=== PATIENT | female | born 1990 | race Hispanic/Latino ===

== ENCOUNTER 2018-06-22 03:01 | Emergency (ER) | payer SELFPAY ==
[2018-06-22] MEDS ORDERED: Sodium Chloride 0.9% 1,000 ML IV STA (03:30)
[2018-06-22] MEDS ORDERED: Morphine 4 MG/ML VIAL IVP STA (03:40)
[2018-06-22] MEDS ORDERED: Morphine 4 MG/ML VIAL ONE (03:55)
--- NOTE | 2018-06-22 04:00 | ED PDOC ---
HPI: Female Pain Time Seen by Provider: 06/22/18 03:14 Chief Complaint (Nursing): Female Genitourinary Chief Complaint (Provider): Female Genitourinary History Per: Patient History/Exam Limitations: no limitations Additional Complaint(s): Verna Lewis is a 27 year old female with no past medical history, who pr esents to the emergency department complaining of continuos vaginal bleeding that was triggered by vaginal intercourse. She states she has had no previous episodes and no known bleeding disorder or gynecological disorder. Patient states she was having intercourse with new male partner and had no rings or objects placed inside vagina. She states that once she felt the blood coming out, she stopped having sex. Patient does report to feeling dizzy and weak. PMD: [facility] Past Medical History Reviewed: Historical Data, Nursing Documentation, Vital Signs Vital Signs: Last Vital Signs Temp 98.3 F 06/22/18 03:08 Pulse 159 H 06/22/18 03:08 Resp 16 06/22/18 03:08 BP 126/94 H 06/22/18 03:08 Pulse Ox 99 06/22/18 03:08 - Medical History PMH: No Chronic Diseases - Surgical History Surgical History: No Surg Hx - Family History Family History: States: Unknown Family Hx - Home Medications Home Medications: Ambulatory Orders Medication Instructions Recorded Docusate Sodium [Colace] 100 mg PO BID #60 capsule 06/22/18 RX: Ferrous Sulfate 325 mg PO BID #60 tablet 06/22/18 oxyCODONE/Acetaminophen [Percocet 1 ea PO Q6 #12 tab 06/22/18 5/325 mg Tab] - Allergies Allergies/Adverse Reactions: Allergies Allergy/AdvReac Type Severity Reaction Status Date / Time No Known Allergies Allergy Verified 06/22/18 03:09 Review of Systems ROS Statement: Except As Marked, All Systems Reviewed And Found Negative Genitourinary Female: Positive for: Vaginal Bleeding Neurological: Positive for: Weakness, Dizziness Physical Exam - Reviewed Nursing Documentation Reviewed: Yes Vital Signs Reviewed: Yes - Physical Exam Appears: Positive for: Non-toxic, No Acute Distress Head Exam: Positive for: ATRAUMATIC, NORMOCEPHALIC Skin: Positive for: Normal Color, Warm, Dry Eye Exam: Positive for: Other (pink conjunctiva) ENT: Positive for: Other (dry lips) Pelvic Exam: Positive for: Active Bleeding (bright red blood from vagina), Other (speculative exam: bright red blood pouring from vagina, unable to visualize vaginal thompson or cervix; at this point STOPPED PELVIC EXAM) Back: Positive for: Normal Inspection. Negative for: L CVA Tenderness, R CVA Tenderness, Vertebral Tenderness Extremity: Positive for: Normal ROM. Negative for: Pedal Edema, Deformity Comments: Patient comes in with several towels soaked in blood. - Laboratory Results Result Diagrams: 06/22/18 08:30 06/22/18 03:52 - ECG O2 Sat by Pulse Oximetry: 99 (RA) Pulse Ox Interpretation: Normal - Critical Care Total Time (In Min): 60 Comments: Control of vaginal bleeding, resuscitation, procedural sedation. Medical Decision Making Medical Decision Making: Time: 0342 A/P: Heavy vaginal bleeding without location identified. Consultation with Dr. Mireille Benavides, who was on her way down immediately. --Labs including CBC, BMP and type and screen. Patient on monitor and TXA ordered. --Following Dr. Benavides's exam, she located the source and will attempt to suture the wound in the ED. Patient will be given 4 mg of morphine and 2 mg of Ativan for procedure. --If procedure is unable to be performed in ED, then patient will go to the OR. --Type and screen --BMP --Beta-HCG, quantitative --CBC with differential --PTT --PT --Ativan 2 mg IVP --Morphine 4 mg IVP --Sodium chloride 1,000 ml --Zofran inj 4 mg IVP Time: 0550 --Moncell's solution was unable to suture due to limitations of angle. Moncell's solution was used along with manual pressure for good control of bleeding. --Will repeat H&H at 8am. --If bleeding continues, patient will be instructed to follow up with outpatient gynecology. Time: 0755 --Patient will be signed out to Dr. Valdez. --Patient will be discharged home if H&H is stable. --Repeat H&H at 8 am. If stable and no return of bleeding, patient will be discharged home . --Patient given referral to Dr. Londono outpatient clinic. --Followup with personal ticket sales agent. --Giving prescription of Percocet for pain. Discussed precaution for Percocet. --Advised to return if pain and bleeding returns. -- Scribe Attestation: Documented by Axel Navas, acting as a scribe for Mireille Ernandez MD. Provider Scribe Attestation: All medical record entries made by the Scribe were at my direction and personally dictated by me. I have reviewed the chart and agree that the record accurately reflects my personal performance of the history, physical exam, medical decision making, and the department course for this patient. I have also personally directed, reviewed, and agree with the discharge instructions and d isposition. Disposition - Clinical Impression Clinical Impression: Traumatic vaginal laceration, Genito-pelvic pain related to vaginal penetration - Disposition Referrals: Mireille Benavides MD [Staff Provider] - Disposition Time: 07:00 Condition: IMPROVED Additional Instructions: Take Motrin for pain. Take Percocet only for severe pain. Follow up with your ticket sales agent or the Dr. Benavides (the ticket sales agent you saw today) in 3 to 5 days. Do not insert any object (including but not limited to: penis, tampon, Nuva ring, etc) into the vagina. If you develop extreme pain, bleeding, difficulty urinating, or other new symptoms, please return to the emergency department. Dr. Mireille Benavides [address] [place] [address] Prescriptions: Docusate Sodium [Colace] 100 mg PO BID #60 capsule RX: Ferrous Sulfate 325 mg PO BID #60 tablet oxyCODONE/Acetaminophen [Percocet 5/325 mg Tab] 1 ea PO Q6 #12 tab Instructions: Moderate Sedation in Adults (DC) Forms: [employer] (Vietnamese), [facility] ED School/Work Excuse Print Language: ISRAELI ED Procedural Sedation - Pre Anesthesia Assessment Chief Complaint: Female Genitourinary Past Medical History: Medications Reviewed, Allergies Reviewed, Record Review Previous Surgies: Reviewed (ear pinning and dental extraction) Family History/Social History: Reviewed (father with heart disease and stent placement) - Physical Exam/Review of Systems Vital Signs Reviewed: Yes Cardiovascular: Regular Rate and Rhythm, Normal S1, S2. denies: Murmurs Respiratory/Chest: Clear to Auscultation, Good Air Exchange, Respiratory Distress, Accessory Muscle Use Neurological: GCS=15, CN II-XII Intact, Speech Normal Abdomen: Normal Bowel Sounds. denies: Tenderness, Distention, Peritoneal Signs Mental Status: Alert and Oriented X 3 - Pre-Procedure Airway Assessment History of difficult intubation or surgical airway (i.e trach):: No (no previous intubation) Inability to extend neck:: No Mouth opening less than two finger breadth:: No Diagnosis of sleep apnea:: No Less than three finger breadth to hyoid bone:: No ASA Criteria: 1 - Healthy, normal. 2 - Mild systemic disease (No functional limitations, mildline obesity, DM withot complications, Hypertention). 3 - Severe systemic disease (Some functional limitation, stable angina, morbid obesity, controlled COPD/Asthma/CHF). 4 - Sever systemic disease constant threat to life (Unstable angina, active symptoms of COPD/Asthma, CHF/ Hypertension. 5 - Moribund ASA Clarification: ASA I Mallampati (airway): Class II - Intra-Procedure (Medications) Medications Given: Ketamine HCl (Ketalar) 70 mg IV ONCE ONE Stop: 06/22/18 05:04 Discontinued Medications Sodium Chloride (Sodium Chloride 0.9%) 1,000 mls @ 1,000 mls/hr IV .Q1H STA Stop: 06/22/18 04:29 Last Admin: 06/22/18 04:05 Dose: 1,000 mls/hr eMAR Start Stop Document 06/22/18 04:05 JODIE (Rec: 06/22/18 04:06 JODIE [id number]) Intravenous Solution Start Date 06/22/18 Start Time 03:15 End Date 06/22/18 End time 04:15 Total Infusion Time 60 Tranexamic Acid 1,000 mg/ (Sodium Chloride) 100 mls @ 10 mls/min IVPB STAT STA Stop: 06/22/18 04:19 Last Admin: 06/22/18 04:20 Dose: 10 mls/min eMAR Start Stop Document 06/22/18 04:20 (Rec: 06/22/18 04:20 [id number] Intravenous Solution Start Date 06/22/18 Start Time 04:10 End Date 06/22/18 End time 04:20 Total Infusion Time 10 Lorazepam (Ativan) 2 mg IVP STAT STA Stop: 06/22/18 03:43 Last Admin: 06/22/18 04:19 Dose: 2 mg IVP Administration Document 06/22/18 04:19 (Rec: 06/22/18 04:19 [id number][facility] Charges for Administration # of IVP Administrations 1 Morphine Sulfate (Morphine) 4 mg IVP STAT STA Stop: 06/22/18 03:41 Last Admin: 06/22/18 04:07 Dose: 4 mg MAR Pain Assessment Document 06/22/18 04:07 (Rec: 06/22/18 04:08 [id number][facility] Pain Reassessment Is this a pain reassessment? No Sleep Is patient sleeping during reassessment? No Presence of Pain Presence of Pain Yes Pain Scale Used Protocol: PSCALES Pain Scale Used Numeric Description Description Intermittent Intensity of Pain at present 6 Acceptable Level of Pain 2 IVP Administration Document 06/22/18 04:07 (Rec: 06/22/18 04:08 [id number]) Charges for Administration # of IVP Administrations 1 Ondansetron HCl (Zofran Inj) 4 mg IVP ONCE ONE Stop: 06/22/18 03:31 Last Admin: 06/22/18 03:30 Dose: 4 mg IVP Administration Document 06/22/18 03:30 (Rec: 06/22/18 04:06 [id number]) Charges for Administration # of IVP Administrations 1 Physician Pushed Medication: Yes - Post-Procedure Post Procedure Note: Ketamine given at a dose of 1mg/kg for 70 mg at 5:07 am. At 5:15, an additional 30 mg for a total of 100mg were given. Pt was on the monitor with SaO2 of 100% and CO2 of 37 throughout the procedure. Pt with minimal movement to stimuli throughout procedure. Pt began to come out of sedation at 5:30 am and was able to squeeze her hand on command, state her name. Pt remains on monitor with stable vitals.
[2018-06-22 04:02] LABS: BASO % 0.6 % (0.0-2.0); EOS # 0.2 K/uL (0.0-0.7); EOS % 2.3 % (0.0-4.0); HEMOGLOBIN 11.8 g/dL (12.0-16.0); LYMPH # 3.1 K/uL (1.0-4.3); LYMPH % 38.3 % (20.0-40.0); MEAN CELL VOLUME 86.4 fl (81.0-99.0); MEAN CORPUSCULAR HGB CONC 33.6 g/dL (33.0-37.0); MEAN PLATELET VOLUME 7.9 fl (7.2-11.7); MONO # 0.6 K/uL (0.0-0.8); NEUT # 4.1 K/uL (1.8-7.0); NEUT % 50.8 % (50.0-75.0); NRBC % 0.1 % (0.0-0.0); RBC 4.07 Mil/uL (3.80-5.20); RED CELL DISTRIBUTION WIDTH 12.4 % (11.5-14.5)
[2018-06-22 04:06] LABS: BLOOD UREA NITROGEN 11 mg/dl (7-17); CALCIUM 8.8 mg/dL (8.4-10.2); GFR NON-AFRICAN AMERICAN > 60; PARTIAL THROMBOPLASTIN TIME 27.3 Seconds (25.6-37.1)
[2018-06-22] MEDS ORDERED: Ketamine 50 mg/ml Inj (10 ml) ONE (05:02)
[2018-06-22] MEDS ORDERED: Povidone Iodine Topical 10% Sol ONE (05:02)
[2018-06-22] MEDS ORDERED: Ketamine 50 mg/ml Inj (10 ml) IV ONE ×3 (05:03→06:26)
--- NOTE | 2018-06-22 08:09 | ED PDOC ---
- Laboratory Results Result Diagrams: 06/22/18 08:30 06/22/18 03:52 Lab Results: PT 11.0 Seconds (9.8-13.1) 06/22/18 03:52 INR 1.0 06/22/18 03:52 APTT 27.3 Seconds (25.6-37.1) 06/22/18 03:52 Beta HCG, Quant < 2.39 mIU/mL 06/22/18 03:52 - ECG O2 Sat by Pulse Oximetry: 99 (RA) - Progress Re-evaluation Time: 09:29 Condition: Re-examined, Improved Medical Decision Making Medical Decision Making: Time: 0755 Patient is being endorsed to provider from Mireille Ernandez MD. Patient pending repeat H&H, reevaluation, and final disposition. Scribe Attestation: Documented by Shahzad Ballesteros, acting as a scribe for Trae Valdez MD. Provider Scribe Attestation: All medical record entries made by the Scribe were at my direction and personally dictated by me. I have reviewed the chart and agree that the record accurately reflects my personal performance of the history, physical exam, medical decision making, and the department course for this patient. I have also personally directed, reviewed, and agree with the discharge instructions and disposition. Disposition - Clinical Impression Clinical Impression: Traumatic vaginal laceration, Genito-pelvic pain related to vaginal penetration - POA Present On Arrival: None - Disposition Referrals: Mireille Benavides MD [Staff Provider] - Disposition: Routine/Home Disposition Time: 09:29 Condition: IMPROVED Additional Instructions: Take Motrin for pain. Take Percocet only for severe pain. Follow up with your hardwood floor sander or the Dr. Benavides (the hardwood floor sander you saw today) in 3 to 5 days. Do not insert any object (including but not limited to: penis, tampon, Nuva ring, etc) into the vagina. If you develop extreme pain, bleeding, difficulty urinating, or other new symptoms, please return to the emergency department. Dr. Mireille Benavides [address] [place] [address] Prescriptions: oxyCODONE/Acetaminophen [Percocet 5/325 mg Tab] 1 ea PO Q6 #12 tab Instructions: Moderate Sedation in Adults (DC) Forms: [employer] (Serbian), [facility] ED School/Work Excuse Print Language: TELUGU
[2018-06-22 08:42] VITALS: RESP 16
[2018-06-22 08:52] LABS: BASO % 0.3 % (0.0-2.0); EOS % 0.1 % (0.0-4.0); HEMOGLOBIN 9.7 g/dL (12.0-16.0); LYMPH # 1.9 K/uL (1.0-4.3); MEAN CELL VOLUME 86.3 fl (81.0-99.0); MEAN CORPUSCULAR HEMOGLOBIN 28.8 pg (27.0-31.0); MEAN CORPUSCULAR HGB CONC 33.3 g/dL (33.0-37.0); MEAN PLATELET VOLUME 7.7 fl (7.2-11.7); MONO # 0.5 K/uL (0.0-0.8); MONO % 4.3 % (0.0-10.0); NEUT # 8.6 K/uL (1.8-7.0); NEUT % 78.3 % (50.0-75.0); RBC 3.37 Mil/uL (3.80-5.20); RED CELL DISTRIBUTION WIDTH 12.6 % (11.5-14.5); WHITE BLOOD COUNT 10.9 K/uL (4.8-10.8)
[2018-06-22 10:54] VITALS: BP 127/81; PULSE 89; TEMP 97.7; O2SAT 99
--- NOTE | 2018-06-22 13:26 | CON ---
DATE: 06/22/2018 RECRUIT INSTRUCTOR CONSULT IN THE ER HISTORY OF PRESENT ILLNESS: This is a 27-year-old G0, last menstrual period about 3 weeks ago, uses NuvaRing, reports that she took out her NuvaRing prior to having sex tonight, was having sex for about 7 minutes and then suddenly felt a very deep thrust and started bleeding. The patient stopped having sex immediately and went to the shower and reports that she was bleeding heavily and so she called her roommate and came to the ER. The patient reports that she has not had sex in 4 months. She reports that this was a new partner and he was using a condom. The patient reports that her RECRUIT INSTRUCTOR is Dr. Young. I was called for a consult by Dr. Mireille Ernandez, the ED doctor, because the pt she was bleeding very heavily and she was having difficulty finding the source of the bleeding in the vagina. PAST MEDICAL HISTORY: Healthy. PAST SURGICAL HISTORY: Ears pinned back in 1997, wisdom teeth in 2016. MEDICATIONS: NuvaRing. ALLERGIES: NO KNOWN DRUG ALLERGIES. GYNECOLOGICAL HISTORY: Menarche at 13. The patient reports that she has been on NuvaRing for 8 years now. She denies any history of any STDs or any abnormal Paps. SOCIAL HISTORY: The patient denies tobacco. She reports alcohol use. She drinks about 3 to 4 drinks at a time on the weekends. She reports that she took "a fourth of an Adderall" tonight because she was feeling tired. FAMILY HISTORY: Parents have hypertension. PHYSICAL EXAMINATION: VITAL SIGNS: Afebrile. Vital signs were stable, although at times she was tachycardic. She was tachycardic at 159 when she first came in at 3 in the morning. Her pulse was also elevated during the time that she was under Ketamine for the attempted laceration repair. Her vitals following the attempted laceration repair were stable. Her blood pressure was 106/66 and her last pulse was 104. GENITOURINARY: A speculum was placed and a large amount of clot was evacuated. The cervix was visualized and to the right of the cervix was a large laceration, about 4 cm in length. The laceration was slowly oozing after the clot was evacuated. The patient was given 2 mg of Ativan and 4 mg of IV morphine and there was an attempt to suture the laceration. The patient was uncomfortable and so it was decided to use conscious sedation. The ED doctor, Dr. Ernandez did monitored anesthesia care with Ketamine. Unfortunately with different speculums tried, the laceration could not be stitched due to the depth and and the angle of the tear. The slow oozing would stop with manual pressure of a sponge on a Ring forceps. It was then decided to apply Monsel's to the laceration. All instruments were removed from the vagina at that time and she was cleaned up and placed on a clean annie so that any further bleeding could be followed. LABS: On admission at 0352, white count was 8, hemoglobin was 11.8, platelets were 286. At 0830, Hgb was 9.7. ASSESSMENT AND PLAN: This is a 27-year-old 0 who had a large amount of bleeding due to sex from a large laceration deep in her vagina to the right side of her cervix. The laceration unfortunately could not be repaired with a stitch and so pressure was applied followed by Monsel's application for hemostasis. Good hemostasis was noted after the Monsel's was applied. There was no further bleeding noted and her vitals remained stable. Pt was discharged home w/ instructions to not replace her NuvaRing for now and to not place anything in the vagina for 6-8 weeks. Pt was also instructed to start Slow Fe and to follow up w/ me in the office in 2 weeks. Brian Benavides MD MTDDavid
== END 2018-06-22 11:16 | disposition home or self-care (01) ==
LOC: H.ER 03:01
DX: S31.41XA Laceration without foreign body of vagina and vulva, initial encounter (principal); R10.2 Pelvic and perineal pain
CPT/HCPCS: 80048; 84702; 85025; 85610; 85730; 86850; 86900; 96361; 96374; 96375; 99285; J2060; J2270; J2405; J7030